=== PATIENT | female | born 1940 | race Caucasian/White ===

== ENCOUNTER 2016-07-31 14:29 | Emergency (ER) | payer MEDICARE, OTHER ==
[~2016-07-31] VITALS: Ht 167.6 cm; Wt 85.0 kg
[~2016-07-31 14:29] MED LIST: CALTTAB6 PO; CO Q100C9 PO; MONT5CHW2 CHEW; OMEP20CA5 PO; PROP20TA3 PO; RIFA550 PO; RISE1TAB13; TAB-TAB PO; TRAZ50TA4 PO; VITA400C70 PO; ZINC220C3 PO
[2016-07-31 14:30] VITALS: BP 147/83; PULSE 81; RESP 14; TEMP 98; O2SAT 98
--- NOTE | 2016-07-31 17:02 | PD ---
HPI Chief Complaint: Abnormal Results Time Seen by Provider: 16:58 Travel History International Travel<30 days: No Contact w/Intl Traveler<30days: No Traveled to known affect area: No History of Present Illness HPI Patient is a 75-year-old female presenting to the emergency department for evaluation of bleeding after tooth extraction at 11 AM this morning. Patient has a history of cirrhosis secondary to liver cancer. She had notified her attenuator Dr. Byrd and was advised to come to the emergency department for evaluation. Patient states that her dentist put stitches in after the tooth was extracted and some form of gel. She has no other physical complaints at this time. PFSH Past Medical History Arthritis: Yes (HANDS) Asthma: Yes Autoimmune Disease: No Blood Disorders: No Heart Rhythm Problems: No Cancer: Yes (liver) Cardiovascular Problems: Yes (aortic valve) High Cholesterol: No Chemotherapy: No Chest Pain: No Congestive Heart Failure: No Cirrhosis: Yes COPD: No Cerebrovascular Accident: No Coronary Artery Disease: Yes Diabetes: No Endocrine: No Gastrointestinal Disorders: Yes (GIB) GERD: Yes Glaucoma: No Genitourinary: Yes (BLADDER PROLAPSE, URGENCY) Headaches: No Hepatitis: No (LIVER CIRRHOSIS, HEPATIC ENCEPHALOPATHY) Hiatal Hernia: No Hypertension: No Immune Disorder: No Kidney Stones: No Neurologic: Yes (HEPATIC ENCEPHALOPATHY) Psychiatric: No Reproductive: No Migraines: No Myocardial Infarction: No Radiation Therapy: No Renal Failure: No Seizures: No Sickle Cell Disease: No Sleep Apnea: No Thyroid Disease: No Ulcer: No Past Surgical History AICD: No Appendectomy: No Arteriovenous Shunt: No Cardiac Surgery: Yes (AVR) Cholecystectomy: Yes Ear Surgery: No Endocrine Surgery: No Eye Surgery: Yes (LEFT CATARACT EXTR.,RIGHT PREMACULAR FIBROSIS) Genitourinary Surgery: No Gynecologic Surgery: Yes (HYSTERECTOMY) Hysterectomy: Yes Insulin Pump: No Joint Replacement: No Oral Surgery: No Pacemaker: No Thoracic Surgery: No Other Surgery: Yes (COLONOSCOPY WITH POLYP REMOVAL) Social History Alcohol Use: No Tobacco Use: No Substance Use: No Allergies-Medications (Allergen,Severity, Reaction): Coded Allergies: Amoxicillin (Verified Allergy, Unknown, SORE EYES, 07/31/16) Clindamycin (Verified Allergy, Unknown, SORE EYES, 07/31/16) Dilaudid (Verified Allergy, Unknown, NAUSEA AND VOMITING, 07/31/16) Zithromax (Verified Allergy, Unknown, SORE EYES, 07/31/16) Reported Meds & Prescriptions Reported Meds & Active Scripts Active Reported Singulair (Montelukast Sodium) 5 Mg Chw 5 Mg CHEW HS Zinc Sulfate 220 Mg Cap 220 Mg PO DAILY Trazodone Hcl (Trazodone HCl) 50 Mg Tab 50 Mg PO HS Risedronate Sodium 150 Mg Tab MONTHLY Propranolol (Propranolol HCl) 20 Mg Tab 20 Mg PO BID Vitamin E-400 (Vitamin E) 400 Unit Cap 400 Unit PO DAILY Co Q 10 (Coenzyme Q10) 100 Mg Cap 100 Mg PO DAILY Xifaxan 550 Mg Tab (Rifaximin) 550 Mg Tab 550 Mg PO BID Caltrate 600+D Plus (Calcium Carbonate-Vitamin D W/) +D Plus Tab 1 Tab PO DAILY Multivitamin (Multivitamins) 1 Tab Tab 1 Tab PO DAILY Prilosec 20 mg (Omeprazole) 20 Mg Capcr 20 Mg PO DAILY Review of Systems Except as stated in HPI: all other systems reviewed are Neg HENT: Positive: Gingival Bleeding, Dental Difficulties Physical Exam Narrative GENERAL: Well-developed, well-nourished, alert elderly female. Resting comfortably in no acute distress. SKIN: Warm and dry. HEAD: Atraumatic. Normocephalic. EYES: Pupils equal and round. No scleral icterus. No injection or drainage. ENT: No nasal bleeding or discharge. Mucous membranes pink and moist. MOUTH: Mucous membranes moist, no lesions, tongue and gums appear normal. Left upper tooth extraction with no active bleeding noted. NECK: Trachea midline. No JVD. CARDIOVASCULAR: Regular rate and rhythm. No murmur appreciated. RESPIRATORY: No accessory muscle use. Clear to auscultation. Breath sounds equal bilaterally. GASTROINTESTINAL: Abdomen soft, non-tender, nondistended. Hepatic and splenic margins not palpable. MUSCULOSKELETAL: No obvious deformities. No clubbing. No cyanosis. No edema. NEUROLOGICAL: Awake and alert. No obvious cranial nerve deficits. Motor grossly within normal limits. Normal speech. PSYCHIATRIC: Appropriate mood and affect; insight and judgment normal. Data Data Last Documented VS Vital Signs Date Time Temp Pulse Resp B/P Pulse Ox O2 Delivery O2 Flow Rate FiO2 07/31/16 14:30 98.0 81 14 147/83 98 Orders Complete Blood Count With Diff (07/31/16 16:53) Act Partial Throm Time (Ptt) (07/31/16 16:53) Prothrombin Time / Inr (Pt) (07/31/16 16:53) Basic Metabolic Panel (Bmp) (07/31/16 16:53) Labs Laboratory Tests Test 07/31/16 17:10 White Blood Count 8.9 TH/MM3 Red Blood Count 4.87 MIL/MM3 Hemoglobin 13.9 GM/DL Hematocrit 41.0 % Mean Corpuscular Volume 84.3 FL Mean Corpuscular Hemoglobin 28.6 PG Mean Corpuscular Hemoglobin 33.9 % Concent Red Cell Distribution Width 13.6 % Platelet Count 347 TH/MM3 Mean Platelet Volume 7.6 FL Neutrophils (%) (Auto) 68.3 % Lymphocytes (%) (Auto) 20.8 % Monocytes (%) (Auto) 6.3 % Eosinophils (%) (Auto) 4.4 % Basophils (%) (Auto) 0.2 % Neutrophils # (Auto) 6.1 TH/MM3 Lymphocytes # (Auto) 1.9 TH/MM3 Monocytes # (Auto) 0.6 TH/MM3 Eosinophils # (Auto) 0.4 TH/MM3 Basophils # (Auto) 0.0 TH/MM3 CBC Comment AUTO DIFF Differential Comment AUTO DIFF CONFIRMED Platelet Estimate NORMAL Platelet Morphology Comment NORMAL Red Cell Morphology Comment NORMAL Prothrombin Time 10.6 SEC Prothromb Time International 1.0 RATIO Ratio Activated Partial 25.3 SEC Thromboplast Time Sodium Level 140 MEQ/L Potassium Level 4.1 MEQ/L Chloride Level 102 MEQ/L Carbon Dioxide Level 30.4 MEQ/L Anion Gap 8 MEQ/L Blood Urea Nitrogen 11 MG/DL Creatinine 0.66 MG/DL Estimat Glomerular Filtration 88 ML/MIN Rate Random Glucose 76 MG/DL Calcium Level 9.2 MG/DL [facility] Medical Decision Making Medical Screen Exam Complete: Yes Emergency Medical Condition: Yes Interpretation(s) Laboratory Tests Test 07/31/16 17:10 White Blood Count 8.9 TH/MM3 Red Blood Count 4.87 MIL/MM3 Hemoglobin 13.9 GM/DL Hematocrit 41.0 % Mean Corpuscular Volume 84.3 FL Mean Corpuscular Hemoglobin 28.6 PG Mean Corpuscular Hemoglobin 33.9 % Concent Red Cell Distribution Width 13.6 % Platelet Count 347 TH/MM3 Mean Platelet Volume 7.6 FL Neutrophils (%) (Auto) 68.3 % Lymphocytes (%) (Auto) 20.8 % Monocytes (%) (Auto) 6.3 % Eosinophils (%) (Auto) 4.4 % Basophils (%) (Auto) 0.2 % Neutrophils # (Auto) 6.1 TH/MM3 Lymphocytes # (Auto) 1.9 TH/MM3 Monocytes # (Auto) 0.6 TH/MM3 Eosinophils # (Auto) 0.4 TH/MM3 Basophils # (Auto) 0.0 TH/MM3 CBC Comment AUTO DIFF Differential Comment AUTO DIFF CONFIRMED Platelet Estimate NORMAL Platelet Morphology Comment NORMAL Red Cell Morphology Comment NORMAL Prothrombin Time 10.6 SEC Prothromb Time International 1.0 RATIO Ratio Activated Partial 25.3 SEC Thromboplast Time Sodium Level 140 MEQ/L Potassium Level 4.1 MEQ/L Chloride Level 102 MEQ/L Carbon Dioxide Level 30.4 MEQ/L Anion Gap 8 MEQ/L Blood Urea Nitrogen 11 MG/DL Creatinine 0.66 MG/DL Estimat Glomerular Filtration 88 ML/MIN Rate Random Glucose 76 MG/DL Calcium Level 9.2 MG/DL Vital Signs Date Time Temp Pulse Resp B/P Pulse Ox O2 Delivery O2 Flow Rate FiO2 07/31/16 14:30 98.0 81 14 147/83 98 Differential Diagnosis Hemorrhage versus coagulopathy versus anemia versus thrombocytopenia versus other Narrative Course Patient is a 75-year-old female presenting to emergency from for evaluation of possible bleeding after tooth was extracted this morning. 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 Discussed with my attending physician Dr. High. We will check coags, CBC, BMP. This will allow us to continue to monitor patient for bleeding and if labs are normal and no further bleeding patient will be discharged home. Workup initiated in triage, care patient will be transferred to provider when a bed is available. CBC, chemistry, coags reviewed and are normal. Patient is in no further bleeding while in the emergency department for the last several hours. Return to emergency department for any new or worsening symptoms. Patient was given gauze to keep over the extraction site to avoid her tongue going there. She was encouraged to maintain a soft diet until well-healed. She is encouraged follow-up with her dentist and attenuator as scheduled. Patient verbalized understanding of these instructions. Patient stable for discharge. Diagnosis Primary Impression: Coagulopathy Referrals: Loretta Byrd MD Dentist Patient Instructions: Bleeding Disorders (ED), General Instructions Additional Instructions: Follow-up with her primary doctor, Dr. Villeda, your dentist as scheduled Maintain a soft diet, do not use straws Return to emergency department for any new or worsening symptoms Med/Other Pt SpecificInfo: No Change to Meds Disposition: 01 DISCHARGE HOME Condition: Stable Annmarie Schilling Jul 31, 2016 17:02
[2016-07-31 17:33] LABS: AUTOMATED NEUTROPHIL # 6.1 TH/MM3 (1.8-7.7); BASOPHIL % 0.2 % (0.0-2.0); EOSINOPHIL # 0.4 TH/MM3 (0-0.4); EOSINOPHIL % 4.4 % (0.0-4.0); LYMPH % 20.8 % (9.0-44.0); LYMPHOCYTE # 1.9 TH/MM3 (1.0-4.8); MEAN CELL VOLUME 84.3 FL (80.0-100.0); MEAN CORPUSCULAR HEMOGLOBIN 28.6 PG (27.0-34.0); MEAN CORPUSCULAR HGB CONC 33.9 % (32.0-36.0); MONO % 6.3 % (0.0-8.0); NEUT % 68.3 % (16.0-70.0); PLATELET COUNT 347 TH/MM3 (150-450); RED BLOOD COUNT 4.87 MIL/MM3 (4.00-5.30); RED CELL DISTRIBUTION WIDTH 13.6 % (11.6-17.2); WHITE BLOOD COUNT 8.9 TH/MM3 (4.0-11.0)
[2016-07-31 17:35] LABS: HEMO FLAGS AUTO DIFF
[2016-07-31 17:43] LABS: APTT (PATIENT) 25.3 SEC (24.3-30.1); PROTHROMBIN TIME - PATIENT 10.6 SEC (9.8-11.6)
[2016-07-31 17:57] LABS: BICARBONATE 30.4 MEQ/L (21.0-32.0); POTASSIUM 4.1 MEQ/L (3.5-5.1)
[2016-07-31 18:20] LABS: PLATELET ESTIMATE SMEAR NORMAL (NORMAL); PLATELET MORPHOLOGY NORMAL (NORMAL); SCAN/DIFF AUTO DIFF CONFIRMED
[2016-07-31] MEDS ORDERED: PENI250T59 PO (18:39)
[2016-07-31] MEDS ORDERED: MULTTAB67 PO (18:39)
[2016-07-31 18:48] VITALS: BP 140/86
== END 2016-07-31 20:30 | disposition home or self-care (01) ==
LOC: NETRI 14:29
DX: D68.4 Acquired coagulation factor deficiency (principal); K08.409 Partial loss of teeth, unspecified cause, unspecified class; J45.909 Unspecified asthma, uncomplicated; K74.60 Unspecified cirrhosis of liver
CPT/HCPCS: 80048; 85025; 85610; 85730; 99283

== ENCOUNTER 2016-10-12 10:01 | Day surgery (SDC) | payer MEDICARE, OTHER ==
[~2016-10-12 10:01] MED LIST changes: -CALTTAB6 PO; -CO Q100C9 PO; -MONT5CHW2 CHEW; +MULTTAB67 PO; -OMEP20CA5 PO; +PENI250T59 PO; -PROP20TA3 PO; -RIFA550 PO; -RISE1TAB13; -TAB-TAB PO; -TRAZ50TA4 PO; -VITA400C70 PO; -ZINC220C3 PO
[2016-10-12 10:49] VITALS: BP 111/69; PULSE 63; RESP 16; TEMP 97.2; O2SAT 99
[2016-10-12 11:41] VITALS: BP 112/54; PULSE 71; RESP 20; TEMP 98.4; O2SAT 96
[2016-10-12 12:05] VITALS: BP 121/63; PULSE 68; RESP 18; O2SAT 96
--- NOTE | 2016-10-12 13:38 | RADRPT ---
EXAM DATE/TIME: 10/12/2016 10:40 [facility] COMPARISON: No previous studies available for comparison. INDICATIONS : Ascites. MEDICAL HISTORY : Hypertension. Gastroesophageal reflux disease. CAD. Hepatic encephalopathy. Cirrhosis. Liver cancer. SURGICAL HISTORY : Hysterectomy. Cholecystectomy. Chemotherapy. ENCOUNTER: Initial ACUITY: 1 month PAIN SCORE: 3/10 LOCATION: Left lower quadrant FLUID: Total volume of 4700 cc of clear, red fluid was removed. Fluid was discarded. Paracentesis was therapeutic only. Post procedure scanning reveals no hematoma or other complication. TECHNIQUE: 1. Ultrasound guidance for abdominal paracentesis. 2. Paracentesis. The risks, benefits, and alternatives to ultrasound guided paracentesis were explained to the patient in detail including the risk of bleeding and infection. Written and verbal informed consent was obt ained. With the patient on the ultrasound table, ultrasound imaging was used to select the most appropriate approach for paracentesis. Overlying skin was prepped and draped in the usual sterile fashion and wi th a local anesthetic, a dermatotomy was made with an 11 blade scalpel. A 6 Yi [id number] ca theter was introduced into the peritoneal cavity and fluid was collected. The patient tolerated the procedure well and left the ultrasound suite in stable condition. CONCLUSION: Uncomplicated ultrasound guided paracentesis. Jonas Pelaez MD FACR on October 12, 2016 at 13:37 Board Certified Radiologist. This report was verified electronically.
== END 2016-10-12 12:17 | disposition home or self-care (01) ==
LOC: HRAD 10:01 → HRIP 10:02 → HRAD 12:17
DX: R18.8 Other ascites (principal); K74.60 Unspecified cirrhosis of liver; I10 Essential (primary) hypertension
CPT/HCPCS: 49083